=== PATIENT | male | born 1990 | race Native Hawaiian/Other Pacific Islander ===

== ENCOUNTER 2016-12-10 20:44 | Emergency (ER) | payer OTHER ==
[~2016-12-10] VITALS: Ht 185.4 cm; Wt 2.7 kg
[2016-12-10 21:36] LABS: PLATELET COUNT 285 K/uL (142-355)
[2016-12-10 21:37] LABS: POTASSIUM 3.3 mmol/L (3.6-5.2); SODIUM 138 mmol/L (136-145)
[2016-12-10 22:08] VITALS: BP 124/68; TEMP 97.9
== END 2016-12-10 22:17 | disposition home or self-care (01) ==
LOC: ED 20:44
PROVIDERS: Specialist
DX: F10.129 Alcohol abuse with intoxication, unspecified (principal); R46.89 Other symptoms and signs involving appearance and behavior
CPT/HCPCS: 36415; 80053; 80320; 82150; 83690; 85027; 96374; 96375; 99284; J2405; J3490

== ENCOUNTER 2017-10-09 13:13 | Emergency (ER) | payer OTHER ==
[~2017-10-09] VITALS: Ht 188 cm; Wt 72.6 kg
[2017-10-09 13:40] VITALS: BP 133/813; TEMP 97.7
== END 2017-10-09 15:31 | disposition home or self-care (01) ==
LOC: ED 13:13
DX: M79.641 Pain in right hand (principal)
CPT/HCPCS: 99281

== ENCOUNTER 2021-09-24 06:59 | Emergency (ER) | payer OTHER ==
[~2021-09-24] VITALS: Ht 188 cm; Wt 81.6 kg
[2021-09-24 07:05] VITALS: TEMP 97.1
[2021-09-24 07:42] VITALS: BP 144/92
== END 2021-09-24 07:44 | disposition home health service (06) ==
LOC: ED 06:59
DX: K02.9 Dental caries, unspecified (principal)
CPT/HCPCS: 99282